=== PATIENT | male | born 1965 | race Caucasian/White ===

== ENCOUNTER 2025-07-21 14:14 | Inpatient (IN) | payer OTHER, SELFPAY ==
[2025-07-21] VITALS (21 sets, daily range): BP systolic 112–168; BP diastolic 85–125; BMI 31.6
--- NOTE | 2025-07-21 08:50 | ED.GENMED ---
History of Present Illness
<Marly Harris PA-C - Last Filed: 07/21/25 10:21>
General
Chief Complaint: Chest Pain
Source: patient
Exam Limitations: none
Time Seen by Provider: 07/21/25 08:48
Nursing documentation reviewed up to this point in time: agreed with
History of Present Illness
History of Present Illness:
Patient is a 59 y.o male presenting to the emergency department for evaluation following episode of chest pain which occurred last night. Patient states he was woken up at 3 AM with a pressure/tightness sensation in his mid chest. Pain was
constant and persisted for about 2.5 hours however seem to resolve around 5:30 AM. He also describes a pain radiating down his left arm. He denies any associated lightheadedness, dizziness, shortness of breath, nausea or diaphoresis.
Patient states that over the past few months he has felt more short of breath with exertional activities like climbing the stairs. He occasionally does have a tightness in his chest. Yesterday�patient states he did assist his daughter as she is
moving and climbed many flights of stairs.
Patient did have an episode of somewhat similar symptoms many years ago and was seen by cardiology, Maurice and Jevon and symptoms were suspected to be secondary to acid reflux.
He does have a significant family history of coronary artery disease including multiple MIs in his brother starting the age of 45 as well as his father had a triple bypass. Patient himself has no known history of coronary artery disease. His
primary care recently recommended a stress test.
Review of Systems
<Marly Harris PA-C - Last Filed: 07/21/25 10:21>
Review of Systems
Allergies reviewed?: Yes
All Other Systems: ROS reviewed and negative except as documented in HPI and ROS
Phy Exam
<Marly Harris PA-C - Last Filed: 07/21/25 10:21>
Physical Exam
Physical Exam:
Vitals: Hypertensive, otherwise vital signs stable. Afebrile
General: Patient is well appearing, no acute distress
Skin: Warm and dry, no rashes or lesions
Head: Normocephalic, atraumatic
Eyes: Sclera nonicteric. EOMs intact. No nystagmus.
Throat: Protecting airway
Neck: Normal ROM, no cervical spine tenderness, no meningismus
Cardiac: Regular rate and rhythm, no murmurs. 2+ palpable radial pulses bilaterally. No reproducible chest wall tenderness
Pulm: Normal respiratory effort, no wheezes, rales, rhonchi heard on exam
Abdomen: No abdominal tenderness.
Extremities: No evidence of cyanosis or edema of bilateral lower extremities. 2+ palpable DP pulses.
Neuro: AAOx3. Grossly intact.
Psychiatric: Normal affect.
Scores
<Marly Harris PA-C - Last Filed: 07/21/25 10:21>
Heart Score for Chest Pain Patients
STEMI patient?: No
History: Moderately Suspicious
ECG: Nonspecific Repolarization
Age: >45 - <65 years
Risk Factors: 1 or 2 Risk Factors
Troponin: >/= 3 x Normal Limit
Heart Score for Chest Pain Patients: 6
Heart Score Risk: 20.3% MACE over next 6 weeks
Course
<Marly Harris PA-C - Last Filed: 07/21/25 10:21>
Orders/Labs/Results
Orders:
Orders
07/21/25 08:39
EKG [Electrocardiogram (*1)] Urgent
Reason for Study: Chest Pain
07/21/25 08:40
EKG- Treatment ONCE
07/21/25 08:53
CXR2 [CR Chest - 2 Views ] Urgent
Comment:
Reason For Exam: chest pain
07/21/25 09:07
CMP [Comprehensive Metabolic Panel] Urgent
Complete Blood Count/No Diff Urgent
NT-proBNP Urgent
Troponin I Urgent
07/21/25 09:21
Add On- LAB Urgent
Tests Added?: Pro-BNP
07/21/25 10:02
CARDIOLOGY CONSULT Urgent
Consulting Provider: Fuad Gilliland
Was physician already notified: Yes
Aspirin Chewable [Low Strength Aspirin] 324 mg PO NOW STA
Heparin 4,000 units IV NOW STA
07/21/25 10:03
PTT Urgent
Comment: Obtain baseline before beginning heparin infusion if not already collected
Nursing to Place Non Medication Order As Directed
Physician Order: PTT 6 hours after initial start of Heparin infusion
07/21/25 10:15
Heparin 57154 Units/250 ml 25,000 units in 250 ml IV PER PROTOCOL
Weight to be used for heparin protocol in kilograms (kg):: 105.6
Protocol:: Cardiac Tx/Acute Coronary
PTT Goal Range to be used:: PTT 73 to 111 seconds
Order type:: Initial
INITIAL Infusion Dose (UNITS/KG/hr) & then follow protocol:: 12 units/kg/hr
Infusion Dose in UNITS/hr & then follow protocol (UNITS/hr):: 1,000
INFUSION RATE in mL/hr & then follow protocol (mL/hr):: 10
PTT less than or equal to 64 seconds:: Increase rate by 200 units/hr (+ 2 mL/hr)
PTT 64.1 to 72.9 seconds:: Increase rate by 100 units/hr (+ 1 mL/hr)
PTT 73 to 111 seconds:: Target Range. No change in rate.
PTT 111.1 to 130.9 seconds:: Decrease rate by 100 units/hr (- 1 mL/hr)
PTT 131 to 199.9 seconds:: HOLD for 1 hr. Then decrease rate by 200 units/hr (- 2 mL/hr)
PTT greater than or equal to 200 seconds:: HOLD for 2 hrs & Notify Provider. Then decrease by 200 units/hr (-
2 mL/hr)
Lab follow-up:: Each change, PTT q6h until 2 consecutive are therapeutic. Then PTT
daily.
Abnormal Lab Results
07/21/25
09:07
MCH 32.8 H pg
(27.0-31.0)
Glucose 106 H mg/dl
(70-99)
Troponin I 0.188 H* ng/ml
07/21/25 09:07
07/21/25 09:07
Vital Signs
Initial and Last Documented VS:
Initial Vital Signs
Temp Pulse Resp BP Pulse Ox
97.8 F 74 20 160/109 97
07/21/25 08:43 07/21/25 08:43 07/21/25 08:43 07/21/25 08:43 07/21/25 08:43
Last Documented Vital Signs
Temp Pulse Resp BP Pulse Ox
97.8 F 72 12 168/119 95
07/21/25 08:43 07/21/25 09:15 07/21/25 09:15 07/21/25 09:00 07/21/25 09:16
<Blayne Santiago MD - Last Filed: 07/21/25 10:08>
Orders/Labs/Results
Orders:
Orders
07/21/25 08:39
EKG [Electrocardiogram (*1)] Urgent
Reason for Study: Chest Pain
07/21/25 08:40
EKG- Treatment ONCE
07/21/25 08:53
CXR2 [CR Chest - 2 Views ] Urgent
Comment:
Reason For Exam: chest pain
07/21/25 09:07
CMP [Comprehensive Metabolic Panel] Urgent
Complete Blood Count/No Diff Urgent
NT-proBNP Urgent
Troponin I Urgent
07/21/25 09:21
Add On- LAB Urgent
Tests Added?: Pro-BNP
07/21/25 10:02
CARDIOLOGY CONSULT Urgent
Consulting Provider: Fuad Gilliland
Was physician already notified: Yes
Aspirin Chewable [Low Strength Aspirin] 324 mg PO NOW STA
Heparin 4,000 units IV NOW STA
07/21/25 10:03
PTT Urgent
Comment: Obtain baseline before beginning heparin infusion if not already collected
Nursing to Place Non Medication Order As Directed
Physician Order: PTT 6 hours after initial start of Heparin infusion
07/21/25 10:15
Heparin [id number] Units/250 ml 25,000 units in 250 ml IV PER PROTOCOL
Weight to be used for heparin protocol in kilograms (kg):: 105.6
Protocol:: Cardiac Tx/Acute Coronary
PTT Goal Range to be used:: PTT 73 to 111 seconds
Order type:: Initial
INITIAL Infusion Dose (UNITS/KG/hr) & then follow protocol:: 12 units/kg/hr
Infusion Dose in UNITS/hr & then follow protocol (UNITS/hr):: 1,000
INFUSION RATE in mL/hr & then follow protocol (mL/hr):: 10
PTT less than or equal to 64 seconds:: Increase rate by 200 units/hr (+ 2 mL/hr)
PTT 64.1 to 72.9 seconds:: Increase rate by 100 units/hr (+ 1 mL/hr)
PTT 73 to 111 seconds:: Target Range. No change in rate.
PTT 111.1 to 130.9 seconds:: Decrease rate by 100 units/hr (- 1 mL/hr)
PTT 131 to 199.9 seconds:: HOLD for 1 hr. Then decrease rate by 200 units/hr (- 2 mL/hr)
PTT greater than or equal to 200 seconds:: HOLD for 2 hrs & Notify Provider. Then decrease by 200 units/hr (-
2 mL/hr)
Lab follow-up:: Each change, PTT q6h until 2 consecutive are therapeutic. Then PTT
daily.
Abnormal Lab Results
07/21/25
09:07
MCH 32.8 H pg
(27.0-31.0)
Glucose 106 H mg/dl
(70-99)
Troponin I 0.188 H* ng/ml
07/21/25 09:07
07/21/25 09:07
Vital Signs
Initial and Last Documented VS:
Initial Vital Signs
Temp Pulse Resp BP Pulse Ox
97.8 F 74 20 160/109 97
07/21/25 08:43 07/21/25 08:43 07/21/25 08:43 07/21/25 08:43 07/21/25 08:43
Last Documented Vital Signs
Temp Pulse Resp BP Pulse Ox
97.8 F 72 12 168/119 95
07/21/25 08:43 07/21/25 09:15 07/21/25 09:15 07/21/25 09:00 07/21/25 09:16
<Marly Harris PA-C - Last Filed: 07/21/25 10:21>
MDM/Problems Addressed
Differential Diagnosis Includes:
Not limited to: Muscle strain/spasm, GERD, acute coronary syndrome, congestive heart failure, pericarditis, myocarditis, etc.
MDM/Problems Addressed:
59-year-old male presenting for evaluation following 2.5-hour episode of midsternal chest pressure which woke him from sleep around 3 AM. He also notes pain into his left arm. Chest pain has resolved prior to my evaluation. There was no
associated shortness of breath, diaphoresis, lightheadedness, nausea. No pleuritic or clear exertional component to the symptoms. He did assist his daughter in moving yesterday and climbed many flights of stairs. No personal history of coronary
artery disease although significant family history.
Hypertensive on arrival with otherwise stable vital signs. Physical exam as above. Differential broad and includes cardiac, pulmonary, and MSK etiologies. Initial EKG obtained in triage reveals normal sinus rhythm with some nonspecific ST
changes. ED plan: Labs, chest x-ray. With family history�will plan for serial troponins to rule out acute coronary syndrome. Will reassess after above.
Update 10 AM: Troponin elevated at 0.188. Otherwise labs unremarkable. Clinical picture consistent with unstable angina. Patient remains chest pain-free. Attending ED physician did discuss case with cardiology on-call. Heparin bolus/drip
started in the ED. Full-strength aspirin given. Patient admitted to hospitalist service in stable condition with cardiac consult. Plan for cardiac catheterization later today versus tomorrow.
Chronic conditions affecting care:
N/A
Acute Exacerbation and/or Progression of Chronic Illness:
N/A
<Marly Harris PA-C - Last Filed: 07/21/25 10:21>
*Pulse Oximetry
SaO2: 97
Oxygen Mode of Delivery: Room air
Patient hypoxic: no
*EKG
Interpreted by ED Provider?: Yes
EKG Intrepretation Date: 07/21/25
Interpretation: abnormal
Comparison EKG: no comparison EKG present
Heart Rate: 74
Rate: normal
Rhythm: sinus
[place]: normal axis
Interval: normal QT interval
QRS Pattern: normal QRS
Ischemia: non-specific ST changes
*All Round [place]cher Interpretation
Rate: normal
Interpretation: normal
Heart Rate: 70
Rhythm: sinus
*Critical Care Note
Total Time (30-74mins, 75-104mins- exclusive of procedures): 30
comment:
Critical care statement: A total of 30 minutes of critical care time was provided for this patient. This includes management of unstable vital signs, evaluation of the patient at bedside, reviewing the patient's pertinent medical records, discussion
with consultants, review of old EKGs and review of pertinent medical records. This time with separate from time utilized to perform the aforementioned documented procedures
<Marly Harris PA-C - Last Filed: 07/21/25 10:21>
Patient Management
Discussion with other providers: Hospitalist and Operations Director (Case discussed with cardiology)
ED Attending Note
<Marly Harris PA-C - Last Filed: 07/21/25 10:21>
-
Portions of this chart may have been created with voice recognition software.� Occasional wrong word or��sound alike� substitutions may have occurred due to the inherent limitations of voice recognition software.
<Blayne Santiago MD - Last Filed: 07/21/25 10:08>
ED Attending Note
Patient seen and examined by attending physician: Yes
ED Attending Note:
I have seen and evaluated the patient with a [id number] encounter. I have spoken to the advance practicer provider and involved in the medical history, the physical exam, medical decision making.
Evaluation and management service: agree unless noted differently below.
Results interpretation: agree unless noted differently below.
Focused HPI: 59-year-old male with a past medical history of GERD presents to the ER for evaluation of chest pain. Patient reports onset of symptoms around 3 AM that woke him from sleep. He says symptoms lasted for about 2 hours and have since
resolved and he is now chest pain-free. He describes a pressure/squeezing sensation substernal. He denies any associated nausea, vomiting, diaphoresis. Denies shortness of breath. He does note that yesterday he was moving furniture for his
daughter and had similar chest pains with exertion that were transient and resolved with rest. He notes that over the past month or 2 he has noticed limited stamina with yard work which is unusual for him. He denies any personal history of heart
disease, he did see Dr. Richards once in the past for cardiac workup that was attributed to indigestion�he estimates this was in roughly 2019 and has not seen anyone since. He does have a strong family history of heart disease including DE in his
brother at 47 and CABG in his father.
Physical exam: Awake and alert no distress. Hypertensive otherwise normal vitals. No cardiac rubs gallops or murmurs. Lungs sound clear. No JVD. No edema in the legs.
Medical Decision Makin-year-old male presents with progressive chest pain culminating in resting episode of chest pain for 2 hours last night that has since resolved. Hypertensive but otherwise normal vitals. Physical exam as above. EKG
shows some nonspecific ST changes. His notes troponin is elevated 0.188. Overall clinical picture concerning for unstable angina. Given full dose aspirin and heparin infusion initiated. Case discussed with cardiology for consultation�it sounds
like likely plan for a cardiac catheterization either today or tomorrow. Case discussed with hospitalist for admission.
Discharge Plan
Departure
Patient Disposition: Admit
Date of Disposition: 07/21/25
Time of Disposition: 10:05
Admit to doctor: Grisel
Presentation/result/management discussed w/ accepting MD/DO: Hospitalist
Discharge Problem:
Unstable angina
Prescriptions:
No Action
famotidine [Pepcid] 20 mg Tablet
20 mg PO DAILYPRN PRN (Reason: GERD)
Interventions
Interventions:
*Risk Screen - Suicide Last Done: 07/21/25 08:43
*General Assessment Last Done: 07/21/25 09:00
*Neglect/Abuse Screening Last Done: 07/21/25 08:43
*ED- Fall Risk Assessment Last Done: 07/21/25 09:00
*ED COVID-19 Vaccine History Last Done: 07/21/25 09:00
ED- Cardiac Assessment Last Done: 07/21/25 09:16
Discharge Date and Time
Print Language: CHADIAN
--- NOTE | 2025-07-21 09:25 | EDRN ---
Received patient on stretcher. Patient stated that he developed chest pain this morning that woke him up from sleep. Lasted a couple of hours. Denied c/o SOB,nausea and diaphoresis. Patient stated that he was helping his daughter move yesterday.
Denies chest pain now.
[2025-07-21 09:27] LABS: Hematocrit 43.4 % (39.0-52.0); Hemoglobin 15.6 g/dL (13.0-18.0); Mean Corp Hgb Conc. 35.9 g/dL (33.0-37.0); Mean Corpuscular Volume 91.4 fL (80.0-94.0); Platelet Count 172 10^3/uL (130-400); Red Cell Dist. Width 11.9 % (11.5-14.5)
[2025-07-21 09:40] LABS: ALT (SGPT) 31 U/L (0-50); AST (SGOT) 30 U/L (17-59); Albumin 4.4 g/dl (3.5-5.0); Alkaline Phosphatase 93 U/L (38-126); Blood Urea Nitrogen 13 mg/dl (9-20); Calcium 8.9 mg/dl (8.4-10.2); Carbon Dioxide 28 mmol/L (22-30); Chloride 104 mmol/L (98-107); Estimated Creatinine Clearance > 125 ml/min; Glucose 106 mg/dl (70-99); Potassium 4.2 mmol/L (3.5-5.1); Sodium 138 mmol/L (135-145); Total Protein 7.4 g/dl (6.3-8.2); eGFR > 60.00
[2025-07-21 09:52] LABS: Troponin I 0.188 ng/ml
[2025-07-21] MEDS: HEPARIN 4000 UNITS IV (10:25)
[2025-07-21] MEDS: LOW STRENGTH ASPIRIN 324 MG PO (10:26)
[2025-07-21] MEDS: HEPARIN 25000 UNITS/250 ML IV (10:26)
[2025-07-21 10:42] LABS: APTT 25.2 Sec (23.4-35.0)
--- NOTE | 2025-07-21 11:13 | CON.CAR ---
Addendum entered and electronically signed by Fuad Gilliland MD 07/21/25 12:23:
59-year-old man with little past medical history with 2 hours of chest discomfort at 3 AM radiating down the left arm, presenting with a troponin of 0.[address] and T wave changes. In retrospect, some exertional dyspnea and tightness
in his chest.
PMH: Largely negative, possible GERD
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
Meds: As needed famotidine
Rest of history as below, reviewed in detail and agree unless otherwise specified
149/103, pulse 73, respiratory rate 13, head neck exam unremarkable lungs are clear, regular rate and rhythm without murmurs or gallops, abdomen benign extremities without clubbing cyanosis or edema distal pulses intact
Chest x-ray: No active disease
ECG: Sinus rhythm, minor nonspecific ST and T wave changes
Normal CBC, glucose 106, creatinine 0.8, troponin 0.188, proBNP 48.7
Impression:
Acute coronary syndrome
Hypertension suspected
Hypercholesterolemia suspected
Other information as below per Tanika Doan. Reviewed in detail and agree, unless otherwise specified
Plan:
Aspirin, IV nitroglycerin, heparin, low-dose beta-blockade, likely statin
Proceed with cardiac catheterization
Reviewed with patient
Original Note:
Consultation
Consultation Request
Date/Time Consultation Requested: 07/21/2025
Date/Time Consultation Performed: 07/21/2025
Requesting Provider: Dr. Santiago in the ER
Performing Provider: Dr. LUIS Gilliland
Reason for Consultation: USA
Medical History
-
History of Present Illness:
Patient came to the ER today with chest pain and is being admitted with elevated troponin and concern for unstable angina and cardiology was consulted urgently in the ER. Patient says that over the weekend he was helping his daughter move from her
home and while going up and down the stairs with boxes he had a substernal chest pain. Patient did not think much of his symptoms and then he awoke at 3 AM today with heavy substernal pressure radiating to the left arm that felt similar to, but
much more intense than what he had felt yesterday. Symptoms lasted for about 2 hours and then the patient managed to doze off back to sleep and was awakened at 6 AM when the alarm went off and he had no more pain. Patient told his about his
symptoms and came to the ER. Since arrival in the ER patient says that the heavy chest pressure has improved, but there is an ongoing aching substernal. Patient recalls being evaluated by [facility] in 2019 with symptoms that were attributed to GERD. He
says he had a stress test but it has been many years since then. Patient denies history of HTN, but initial BP today was 160/109 and BP as high as 167/125. Patient does not take any medications on a daily basis as an outpatient.
PMH:
FH premature CAD
Past Medical History
Past Medical History: Other (In HPI)
Past Surgical History: None
Social History
Tobacco: Non-Smoker
Alcohol: None
Drug: None
Personal:
Living: With Family
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
Family History
Family History: Early CAD (brother with OH and PCI starting at age 47, father with OH and CABG in his 50s)
Allergies / Home Medications
Allergy/AdvReac Type Severity Reaction Status Date / Time
No Known Allergies Allergy Verified 07/21/25 08:59
�Medication �Instructions �Recorded �Confirmed �Type
famotidine 20 mg tablet (Pepcid) 20 mg PO DAILYPRN PRN GERD 07/21/25 07/21/25 History
Review of Systems
-
History Source: Patient
All other systems: Negative unless noted
Physical Exam
Vital Signs
Temp Pulse Resp BP Pulse Ox
97.8 F 79 19 163/97 96
07/21/25 08:43 07/21/25 11:00 07/21/25 11:00 07/21/25 11:00 07/21/25 11:00
GEN: NAD. AAOx3
HEENT: EOMI, MMM
LUNGS: RA. CTA B/L, no wheeze
CV: SR on tele. Reg, S1/S2, no murmur
ABD: soft, BS+, NT, ND
EXT: 2+ radial and PT pulses B/L. No edema
NEURO: Gross non-focal
SKIN: No rash
Lab Results
07/21/25 09:07
07/21/25 09:07
Troponin I 0.188 ng/ml H* 07/21/25 09:07
Vzm-R-Rxczboiekpd Pept 48.7 pg/ml 07/21/25 09:07
Impression / Plan
-
PCP: Dr. Mynor Loev
Card: Saw [facility] once in 2018
Impression:
Presented to the ER with symptoms of USA 07/21/2025
USA, possible NSTEMI
Elevated troponin
FH premature CAD
Plan:
-Patient came to the ER today with chest pain and is being admitted with elevated troponin and concern for unstable angina and cardiology was consulted urgently in the ER. Patient says that over the weekend he was helping his daughter move from her
home and while going up and down the stairs with boxes he had a substernal chest pain. Patient did not think much of his symptoms and then he awoke at 3 AM today with heavy substernal pressure radiating to the left arm that felt similar to, but
much more intense than what he had felt yesterday. Symptoms lasted for about 2 hours and then the patient managed to doze off back to sleep and was awakened at 6 AM when the alarm went off and he had no more pain. Patient told his about his
symptoms and came to the ER. Since arrival in the ER patient says that the heavy chest pressure has improved, but there is an ongoing aching substernal. Patient recalls being evaluated by [facility] in 2019 with symptoms that were attributed to GERD. He
says he had a stress test but it has been many years since then. Patient denies history of HTN, but initial BP today was 160/109 and BP as high as 167/125. Patient does not take any medications on a daily basis as an outpatient.
-ECG reviewed by me without acute ischemic changes
-Initial troponin 0.118 and trending
-Concern for unstable angina with symptoms on exertion over the weekend and now awakened early this morning with chest pain that lasted for hours and is associated with an elevated troponin here. Reviewed with patient possibility of cardiac
catheterization and results including 1-2 vessels disease that can undergo PCI vs MV CAD vs possible nonobstructive CAD and that his symptoms are all due to HTN emergency.
-Patient is familiar with cardiac catheterization procedure because of his family history with his dad and his brother. We discussed the risks versus benefits of cardiac cath and he would like to proceed
-Patient given aspirin 324 mg chewable in the ER prior to my arrival
-Heparin gtt started prior to my arrival
-Due to ongoing chest aching I started nitro gtt at 10 mcg and then titrate for pain
-On admission check CVE and pending cardiac cath will need to start statin. Patient reports myalgias with simvastatin in the past.
-Check HgbA1c
-Patient will likely need additional anti-HTN treatment
-Check echo
[2025-07-21] MEDS: NITROGLYCERIN PREMIX 250 IV (11:21)
--- NOTE | 2025-07-21 11:48 | EDRN ---
Patient started on NTG drip at 10mcg/min for c/o 2-3 chest tightness. Patient stated that he has been having chest tightness since he's been here but did not equalivant it as pain. Explained to patient about NTG drip and if his chest tightness gets
any worse he needs to notify staff immediately. Verbalized understanding. 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 Verbalized understanding.
--- NOTE | 2025-07-21 12:10 | CM ---
Met with patient at bedside in the ED
Pharmacy verified: [facility] @ [address]
Live with ; multilevel home; 5 steps to enter; 17-18 steps between floors; railings present; full bath 1st floor
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
NO DME
NO SNF or Home Health utilization history
Transport: he drove self to hospital; if driving home is restricted, will provide transport
Discharge plan to be determined pending hospital course; Case Management will monitor for services and support if/when needs identified
--- NOTE | 2025-07-21 13:20 | HPS.HSE ---
Family Physician
-
Family Physician: Mynor Love
Chief Complaint
-
Chest pain, unstable angina
History of Present Illness
59-year-old male with past medical history of GERD now presents for substernal chest pain. Patient states that over the weekend he noted substernal chest pain while ambulating up and down the stairs of boxes. At that point, symptoms subsided
although symptoms reoccurred along with heavy substernal chest pressure rating to the left arm overnight at 3 AM prompting patient to wake up. Patient's symptoms were similar although more intense than what he felt over the weekend. Symptoms
lasted 2 hours, and then patient went back to sleep. Woke up at 6 AM with no pain although after discussion with , decision was to come to the hospital. Does have ongoing aching substernal chest pain in the emergency room. No recent stress
test, cardiac evaluation. On no antiplatelet regimen. Blood pressure mildly elevated, although 136/101, on nitroglycerin drip, afebrile, pulse 97, respirate 16. Troponin 0.188, proBNP 48.7. EKG with nonspecific ST abnormality. Chest x-ray with
no acute cardiopulmonary abnormality noted. Patient was given aspirin 325 mg, heparin drip initiated, nitroglycerin drip initiated. Cardiology consulted for left heart cath tentatively today.
Medical History
Past Medical History
Past Medical History: Reports GERD
Past Surgical History: Reports None
Social History
Tobacco: Non-smoker
Alcohol: None
Drug: None
Personal:
Living: With Family
Employment: Employed
Family History
Family History: Early CAD (brother with IL and PCI starting at age 47, father with IL and CABG in his 50s)
Allergies / Home Medications
Allergies reflects when Allergies were last updated in [facility].
Home Medications with original date entered in [facility]
Allergy/Medication List:
Allergies
Allergy/AdvReac Type Severity Reaction Status Date / Time
No Known Allergies Allergy Verified 07/21/25 08:59
Home Medications
famotidine 20 mg tablet (Pepcid) 20 mg PO DAILYPRN PRN GERD 07/21/25
Review of Systems
-
History Source: Patient
A 12 point ROS was completed and negative except as noted: Yes
Physical Exam
Vital Signs
Vital Signs
Temp Pulse Resp BP Pulse Ox
98.9 F 97 16 136/101 94
07/21/25 12:47 07/21/25 12:47 07/21/25 12:47 07/21/25 12:47 07/21/25 12:47
Physical Exam
General: Well Developed and Well Nourished
HEENT: NormoCephalic
Respiratory: Clear
Cardiac: S1/S2, Regular Rhythm and Tachycardia
GI: Non Tender
Musculoskeletal: No Clubbing
Skin: Warm
Neuro: Awake, Alert, Oriented and AO x 3
Hematologic/Lymphatic: No Lymphadenopathy
Psych: Calm
Laboratory Results
-
07/21/25 09:07
07/21/25 09:07
Laboratory Results
APTT Cancelled 07/21/25 16:30
Total Bilirubin 0.8 mg/dl (0.2-1.3) 07/21/25 09:07
AST 30 U/L (17-59) 07/21/25 09:07
ALT 31 U/L (0-50) 07/21/25 09:07
Alkaline Phosphatase 93 U/L (38-126) 07/21/25 09:07
Troponin I 0.188 ng/ml H* 07/21/25 09:07
Data Reviewed
-
Diagnostic Radiology: Report Reviewed by me
Lab Data: Labs Reviewed by me
Impression/Plan
-
IMPRESSION:
59-year-old coming in for unstable angina, suspected ACS.
PLAN:
#ACS
� Continue aspirin 81 mg daily, received 325 mg today
� Continue nitroglycerin prior to left heart cath
� Continue heparin drip
� Anticipate low-dose beta-iwona initiation tomorrow, 25 mg Toprol ordered
� Follow-up lipid panel, anticipate statin
� Left heart cath today
� Cardiology on board
� Follow-up A1c
� Echocardiogram
� Anticipate transferring over to IVU
#Hypertension
� Initiated on beta-blockade
� Depending on left heart cath, anticipate initiating LISSY inhibitor
#GERD
� Famotidine
Prophylaxis
� Heparin drip
[2025-07-21 13:22] LABS: ACT-LR - POC 252 Seconds (116-155)
[2025-07-21 13:45] LABS: ACT-LR - POC 308 Seconds (116-155)
--- NOTE | 2025-07-21 14:06 | ITS.CL.CATH ---
Tip Printer - Catheterization
Cardiac Catheterization
Procedure Report:
LEFT HEART CATH AND CORONARY INTERVENTION
Date of Procedure: July 21, 2025
Referring: Dr. Fuad Gilliland
PROCEDURES:
1. Left heart catheterization with coronary and single-plane left ventriculography
2. Successful stenting of the mid circumflex to a large OM 2 with a 3.5 x 26 mm Tobin stent that was implanted at nominal pressures and postdilated with a 3.5 mm noncompliant balloon
INDICATION: This is a 59-year-old gentleman with no prior cardiac history who reported the onset of waxing and waning substernal chest pressure during periods of physical exertion over the past several weeks. On the morning of admission he awoke at
approximately 3 AM with substernal chest tightness. 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 He reported ongoing chest discomfort and sought medical attention at [facility]
emergency room. He was found to be very hypertensive complaining of ongoing low-grade substernal chest tightness. His troponin was noted to be mildly elevated. He is now referred for coronary angiography.
ACCESS: Right radial artery, 6 Grenadian sheath
HEMODYNAMICS (mmHg):
AO (s/d, m) : 129/95
LV (s/d) : 134/7
LVEDP : 13
CORONARY FINDINGS
Dominance: Right
LEFT MAIN: Normal
LEFT ANTERIOR DESCENDING: The LAD arises normally from the left main and runs in the anterior interventricular groove. The first diagonal branch arises proximally from the LAD and has a 50% proximal stenosis. The diagonal branch bifurcates
distally. The mid LAD beyond the diagonal branch has tandem 50% and 65% stenoses. The mid to distal LAD has only minor irregularities.
RAMUS: Small to medium caliber vessel that is widely patent
CIRCUMFLEX: The circumflex is a large-caliber nondominant vessel. There is an 80% stenosis in the mid circumflex before the origin of OM1. The circumflex just beyond OM1 becomes 100% occluded with the distal vessel filling via faint right to left
and left to left collaterals.
RIGHT CORONARY: The right coronary artery is a dominant vessel with minor irregularities over its course but no focal obstructive stenosis. The distal RCA supplies collaterals to an occluded circumflex/OM
VENTRICULOGRAPHY: Left ventriculography is performed in an DIMAS projection. The digital single-plane left ventricular ejection fraction is visually estimated at 60% with a small area of anterolateral hypokinesis noted
ANGIOPLASTY PROCEDURE DETAIL: Upon review of the diagnostic angiogram the decision was made to proceed with percutaneous revascularization of the occluded circumflex/OM 2. A 180 mg loading dose of ticagrelor was given. Intravenous heparin was
administered and the ACT was monitored throughout the procedure and maintained within therapeutic limits. The origin of the left main was cannulated with a 6 Grenadian EBU 3.75 guiding catheter and a BMW guidewire across the occluded segment in the
mid circumflex with a moderate degree of difficulty and was then advanced distally into a large terminal obtuse marginal branch. Balloon predilation was performed with a 2.0 x 12 mm Euphora balloon. Antegrade flow was reestablished into a large
terminal obtuse marginal branch. A 3.5 x 26 mm Hart stent was then advanced over the guidewire position with angiographic and fluoroscopic guidance. The stent was implanted at nominal pressures and postdilated with a 3.5 mm noncompliant balloon to
16 mirta distally and 16 mirta proximally with an excellent angiographic result
SEDATION: 68 minutes of procedural sedation was utilized. An independent general medical practitioner was present to assist with and help manage the patient's level of consciousness and physiologic status
RADIATION SUMMARY: Fluoro Time (min): 13.5, Dose (mGy): 1116, DAP (Gy.cm2) : 51.5
CONCLUSIONS
1. Successful stenting of 100% occluded mid circumflex/OM2 with placement of a 3.5 x 26 mm Hart stent that was postdilated to high pressures with a 3.5 mm noncompliant balloon
2. Residual coronary disease involving the mid LAD with tandem 50 and 65% stenoses.
3. Preserved LV systolic function
RECOMMENDATIONS
1. Uninterrupted aspirin and Brilinta for 1 year
2. High intensity lipid-lowering
3. Guideline directed medical therapy for hypertension
4. Transient serial troponin levels and obtain fasting lipid profile. Check hemoglobin A1c
5. Check echocardiogram
6. Patient can follow-up in the office and we will determine next steps to evaluate tandem LAD stenosis
Copy to: Dr. Mynor Love
[2025-07-21 14:20] LABS: ACT-LR - POC 319 Seconds (116-155)
[2025-07-21 14:20] LABS: ACT-LR - POC 306 Seconds (116-155)
--- NOTE | 2025-07-21 14:32 | PTCARENOTE ---
pt is sr on the monitor, hr in the 60s, vss. pt offers no complaints at this time. right radial band is CDI. nitro gtt running per protocol, see MAR. Pt educated on plan of care and pt verbalized understanding. call adamson within reach.
[2025-07-21] MEDS: TYLENOL 650 MG PO (14:59)
--- NOTE | 2025-07-21 16:12 | CM ---
Reviewed chart. Met with Mr. Mason to review discharge plans. He states prior to admission he resides wit his spousein a two story home with six steps to enter. He states he has a full flight of steps to get to bedroom. He states he has a full
bathroom on each level. He states prior to admission he was independent with ambulation and adls. He states he does not have any DME in the home. He states he has a prescription plan. Telephone call to [facility],([phone]) to check on co-pay
for Brilinta. Brilinta co-pay is $326.36 a month and the generic Ticagrelor is $5.00 a month. Telephone call to [facility] [place] to see if Ticagrelor is in stock. [facility] [place] [facility]. Telephone call to [facility] on [address] and
they have it in stock. N.P to send script there. Medical work-up in progress. The discharge plan is to return home with his spouse when medically stable.
[2025-07-21] MEDS: ZESTRIL 5 MG PO (17:20)
[2025-07-21] MEDS: LIPITOR 80 MG PO (17:20)
--- NOTE | 2025-07-21 17:22 | CARDSERVLU ---
Echocardiogram with Lum[facility] completed after protocol screening completed. Allergies verified.
Patent IV site: LAC
IV site flushed with 0.9% NaCl pre and post administration.
Diluted bolus method utilized to enhance visualization of ventricular hernandez.
Total volume given: _2___ mL
Patient tolerated all procedures well without complications.
[2025-07-21 17:28] LABS: Troponin I 7.620 ng/ml
--- NOTE | 2025-07-21 19:14 | PTCARENOTE ---
pt ambulating in room and tolerating well. pt is sr on the monitor, hr in the 70s, vss. pt offers no complaints at this time. nitro gtt off per order. right radial band off with no issue. dressing CDI. pt sitting with . both educated on plan of
care and pt verbalized understanding. call adamson within reach.
[2025-07-21] MEDS: BRILINTA 90 MG PO (20:00)
[2025-07-21] MEDS: COREG 3.125 MG PO (20:00)
[2025-07-21 21:53] LABS: Troponin I 5.820 ng/ml
[2025-07-22] VITALS (8 sets, daily range): BP systolic 112–127; BP diastolic 70–93; BMI 31.0
--- NOTE | 2025-07-22 01:35 | PTCARENOTE ---
Pt NSR on monitor. VSS Denies any pain or discomfort. Rt wrist post cath site dsg CDI. Pt independent in the room, call juan diego w/in reach
[2025-07-22 04:28] LABS: Hematocrit 39.8 % (39.0-52.0); Hemoglobin 14.3 g/dL (13.0-18.0); Mean Corp Hgb Conc. 35.9 g/dL (33.0-37.0); Mean Corpuscular Volume 93.2 fL (80.0-94.0); Platelet Count 159 10^3/uL (130-400); Red Cell Dist. Width 12.0 % (11.5-14.5)
[2025-07-22 05:04] LABS: ALT (SGPT) 31 U/L (0-50); AST (SGOT) 47 U/L (17-59); Albumin 3.8 g/dl (3.5-5.0); Alkaline Phosphatase 75 U/L (38-126); Blood Urea Nitrogen 14 mg/dl (9-20); Calcium 8.5 mg/dl (8.4-10.2); Carbon Dioxide 27 mmol/L (22-30); Chloride 107 mmol/L (98-107); Estimated Creatinine Clearance > 125 ml/min; Glucose 100 mg/dl (70-99); HDL Cholesterol 28 mg/dl; Magnesium 1.9 mg/dl (1.6-2.3); Potassium 4.1 mmol/L (3.5-5.1); Sodium 136 mmol/L (135-145); Total Protein 6.4 g/dl (6.3-8.2); eGFR > 60.00
[2025-07-22 05:19] LABS: Troponin I 3.780 ng/ml
[2025-07-22 05:27] LABS: LDL Cholesterol, Direct 76 mg/dl
--- NOTE | 2025-07-22 08:00 | PTCARENOTE ---
Assumed care of pt from prev nsg shift; Pt AAOx3 w/no c/o CP or SOB.Pt w/VSS w/HR in the 60's & BP 127/90. Pt is SR on telemetry monitoring. Pt w/R radial site w/dressing C/D/I w/no signs or symptoms of bleeding or hematoma. Pt given CAD/ACS book &
ACS med sheet. Questions answered appropriately. Pt w/no addtl needs at this time. Plan of care ongoing.
[2025-07-22 08:41] LABS: Glycohemoglobin (HgbA1c) 5.4 % (4.0-5.6)
[2025-07-22] MEDS: LOW STRENGTH ASPIRIN 81 MG PO (09:33)
[2025-07-22] MEDS: PROTONIX 40 MG PO (09:33)
[2025-07-22] MEDS: ZESTRIL 5 MG PO (09:33)
[2025-07-22] MEDS: BRILINTA 90 MG PO ×2 (09:33→19:39)
[2025-07-22] MEDS: COREG 3.125 MG PO ×2 (09:33→19:39)
--- NOTE | 2025-07-22 10:08 | W.PN.CARDCBS ---
Addendum entered and electronically signed by Fuad Gilliland MD 07/22/25 11:27:
59-year-old man with little past medical history with 2 hours of chest discomfort at 3 AM radiating down the left arm, presenting with a troponin of 0.[address] and T wave changes. In retrospect, some exertional dyspnea and tightness
in his chest.
PMH: Largely negative, possible GERD
Current meds: IV nitro, IV heparin, aspirin 81 mg a day, atorvastatin 80 mg nightly, Brilinta 90 mg twice daily, carvedilol 3.125 twice daily, lisinopril 5 mg daily and pantoprazole 40 mg a day
127/90, 112/81, respiratory rate 14, weight is 103.6 kg, no distress, head neck exam unremarkable, lungs are clear, cardiac exam notable for regular rate and rhythm without murmurs or gallops, abdomen benign extremities without clubbing cyanosis or
edema distal pulses intact
chest x-ray yesterday NAD
ECG sinus rhythm, incomplete right bundle branch block, no acute changes
Hemoglobin 14.3, CMP is normal, peak troponin 7.6, LDL is 76, triglycerides were 505
Cath 07/21/2025: D1 50% proximal, tandem with 50 and 65% mid LAD stenoses, patent ramus, large nondominant circumflex, 80% in the mid circumflex prior to OM1, circumflex is occluded 100% distally, RCA with luminal regularities, distal RCA supplies
occluded circumflex/OM, mild anterolateral hypo-, 3.5 x 26 Jackson stents deployed to occluded mid circumflex
Impression:
NSTEMI with moderate LAD and diagonal atherosclerosis
Hypercholesterolemia
GERD
Plan:
Overall, he looks well. His echocardiogram is reassuring. His EKG is overall unremarkable. His peak troponin was only roughly 7.
Plan on observing overnight and discharging in the a.m.
No changes to medical regimen at present.
Cardiac rehab to be arranged.
We will arrange for outpatient stress testing and follow-up to our office to determine best strategy for moderate tandem LAD stenoses.
Original Note:
Today's Communication / Plan
-
Continue aspirin, Brilinta, high intensity statin
Continue Coreg, lisinopril for hypertension on arrival
Cardiac rehab
Will arrange outpatient cardiac follow-up
Plan for DC in a.m.
Impression / Plan
-
PCP: Dr. Mynor Love
Card: Saw [facility] once in 2018
Impression:
[place]
NSTEMI s/p circ/OM2 PCI 07/21/25, with residual LAD disease
Hypertensive urgency
Elevated triglycerides
FH premature CAD
Echo 07/21/2025: EF 55 to 60%, trace MR, mild aortic sclerosis, normal right heart
Plan:
- Patient presented with symptoms of unstable angina. Ruled in for NSTEMI with peak troponin of 7.6. Status post cardiac catheterization with 100% occlusion of circumflex/OM 2 status post PCI.
-Also noted to have residual LAD disease. consider for OP stress testing to further assess
-no CP overnight
-continue asa, brilinta
-in SR on review of tele
-echo with results as above, reviewed with patient 07/22
-he was started on coreg and lisinopril this admission for HTN urgency on arrival
-LDL 76. triglycerides 505. started on high intensity statin this admission
-cardiac rehab
-plan for DC in AM
-d/w nursing. Discussed with hospitalist
PREADMIT DATA:
-Patient came to the ER today with chest pain and is being admitted with elevated troponin and concern for unstable angina and cardiology was consulted urgently in the ER. Patient says that over the weekend he was helping his daughter move from her
home and while going up and down the stairs with boxes he had a substernal chest pain. Patient did not think much of his symptoms and then he awoke at 3 AM today with heavy substernal pressure radiating to the left arm that felt similar to, but
much more intense than what he had felt yesterday. Symptoms lasted for about 2 hours and then the patient managed to doze off back to sleep and was awakened at 6 AM when the alarm went off and he had no more pain. Patient told his about his
symptoms and came to the ER. Since arrival in the ER patient says that the heavy chest pressure has improved, but there is an ongoing aching substernal. Patient recalls being evaluated by [facility] in 2019 with symptoms that were attributed to GERD. He
says he had a stress test but it has been many years since then. Patient denies history of HTN, but initial BP today was 160/109 and BP as high as 167/125. Patient does not take any medications on a daily basis as an outpatient.
Progress Note - Assistant Corporation Counsel
Subjective
Date of Service: July 22, 2025
Patient without complaints of chest pain or shortness of breath overnight
Objective
Labs:
07/22/25 03:50
07/22/25 03:50
Labs
Hgb 14.3 g/dL (13.0-18.0) 07/22/25 03:50
Hct 39.8 % (39.0-52.0) 07/22/25 03:50
Plt Count 159 10^3/uL (130-400) 07/22/25 03:50
APTT Cancelled 07/21/25 16:30
Sodium 136 mmol/L (135-145) 07/22/25 03:50
Potassium 4.1 mmol/L (3.5-5.1) 07/22/25 03:50
BUN 14 mg/dl (9-20) 07/22/25 03:50
Creatinine 0.8 mg/dL (0.7-1.3) 07/22/25 03:50
Glucose 100 mg/dl (70-99) H 07/22/25 03:50
Troponins
07/21/25 07/21/25 07/21/25
09:07 16:43 21:04
Troponin I 0.188 H* 7.620 H* D 5.820 H*
07/22/25
03:50
Troponin I 3.780 H* D
Vital Signs and I&O:
Vital Signs
Temp Pulse Resp BP Pulse Ox
97.4 F 63 14 127/90 96
07/22/25 07:13 07/22/25 08:45 07/22/25 07:13 07/22/25 07:15 07/22/25 07:15
Vital Signs
Temp Pulse Resp BP Pulse Ox
97.4 F 63 14 127/90 96
07/22/25 07:13 07/22/25 08:45 07/22/25 07:13 07/22/25 07:15 07/22/25 07:15
Intake & Output
07/20/25 07/21/25 07/22/25 07/23/25
07:59 07:59 07:59 07:59
Intake Total 780 / 780
Balance 780 / 780
Physical Exam
Physical Exam
GEN: No distress, awake, alert, oriented x3
HEENT: supple, anicteric, mmm, EOMI
LUNGS: CTA bilaterally, no wheezes/rales
CV: Reg, S1/S2, no murmur
ABD: soft, BS+, NT/ND
EXT: No cyanosis, clubbing, edema
NEURO: Gross non-focal
SKIN: Warm, pink, dry. No rash. Right wrist site clean dry and intact, nontender to palpation. No bruit appreciated
--- NOTE | 2025-07-22 14:49 | W.PN.HOSP.TC ---
Today's Communication/Plan
-
DAPT
BB, ACEI
Statin
HSQ
Anticipate DC tomorrow
Assessment / Plan
Assessment / Plan
Physical Exam
General: Well Developed and Well Nourished
HEENT: NormoCephalic
Respiratory: Clear
Cardiac: S1/S2, Regular Rhythm and Tachycardia
GI: Non Tender
Musculoskeletal: No Clubbing
Skin: Warm
Neuro: Awake, Alert, Oriented and AO x 3
Hematologic/Lymphatic: No Lymphadenopathy
Psych: Calm
59-year-old coming in for unstable angina, suspected ACS.
PLAN:
#ACS
#NSTEMI
-Troponin peaked at 7.62
-Successful stenting of 100% occluded mid circumflex/OM2
-Residual coronary disease involving the mid LAD with tandem 50 and 65% stenoses.
� Continue DAPT
� Continue nitroglycerin prior to left heart cath - can be dced now
- Cont Coreg
- Madi ACEI
-Statin
� Echocardiogram: no wall motion abnormalities; ejection fraction 55-60%.
-outpatient stress testing and follow-up to our office to determine best strategy for moderate tandem LAD stenoses.
#Hypertension
� Initiated on beta-blockade, ACEI
#GERD
� Famotidine
Prophylaxis
� hsq
Anticipated Discharge: Within 24 hours
Subjective/Interval History
-
Date of Service: July 22, 2025
Successful PCI of 100% occluded mid circumflex/OM2
Objective Data
-
Labs:
Laboratory Results
07/22/25
03:50
WBC 6.9
Hgb 14.3
Hct 39.8
Plt Count 159
Sodium 136
Potassium 4.1
Chloride 107
Carbon Dioxide 27
BUN 14
Creatinine 0.8
Glucose 100 H
Calcium 8.5
Total Bilirubin 0.9
AST 47
ALT 31
Alkaline Phosphatase 75
Vital Signs:
Vital Signs
Temp Pulse Resp BP Pulse Ox
98.2 F 62 16 127/93 98
07/22/25 12:16 07/22/25 13:15 07/22/25 12:16 07/22/25 12:18 07/22/25 12:18
I&O
07/21/25 07/22/25 07/23/25
06:59 06:59 06:59
Intake Total 780 / 780
Balance 780 / 780
Review of Systems
-
History Source: Patient
All other systems: Not reviewed unless documented
Data Reviewed
-
Diagnostic Radiology: Report Reviewed by me
Labs: Labs Reviewed by me
[2025-07-22] MEDS: HEPARIN 5000 UNITS SC ×2 (18:04→23:00)
[2025-07-22] MEDS: LIPITOR 80 MG PO (18:05)
--- NOTE | 2025-07-22 20:25 | PTCARENOTE ---
Patient received at change of shift out of bed to the chair. Right radial cath site with gauze and tegaderm C/D/I. Radial pulse palpable. The patient denies chest pain or pressure, feels well overall. Sinus rhythm on telemetry. Oxygen saturation
97-98% on room air. Plan of care discussed with patient and spouse. Call adamson within reach. Care ongoing.
[2025-07-23 02:11] VITALS: BP 131/84
[2025-07-23 02:13] VITALS: BMI 31.0
[2025-07-23 02:38] LABS: Hematocrit 40.8 % (39.0-52.0); Hemoglobin 14.7 g/dL (13.0-18.0); Mean Corp Hgb Conc. 36.0 g/dL (33.0-37.0); Mean Corpuscular Volume 91.9 fL (80.0-94.0); Platelet Count 158 10^3/uL (130-400); Red Cell Dist. Width 12.1 % (11.5-14.5)
[2025-07-23 03:00] LABS: ALT (SGPT) 31 U/L (0-50); AST (SGOT) 37 U/L (17-59); Albumin 3.9 g/dl (3.5-5.0); Alkaline Phosphatase 78 U/L (38-126); Blood Urea Nitrogen 15 mg/dl (9-20); Calcium 9.1 mg/dl (8.4-10.2); Carbon Dioxide 27 mmol/L (22-30); Chloride 108 mmol/L (98-107); Estimated Creatinine Clearance > 125 ml/min; Glucose 97 mg/dl (70-99); Magnesium 2.1 mg/dl (1.6-2.3); Potassium 4.3 mmol/L (3.5-5.1); Sodium 137 mmol/L (135-145); Total Protein 6.7 g/dl (6.3-8.2); eGFR > 60.00
--- NOTE | 2025-07-23 07:31 | W.PN.CARDCBS ---
Addendum entered and electronically signed by Airam Bowling DO 07/23/25 18:31:
I saw and examined the patient.
The [employer] Claim Examiner's note was reviewed and I agree with the note.
Comment: Seen and examined. Offers no new complaints. No chest pain or shortness of breath.
GEN: No distress, awake, alert, oriented x3
HEENT: mmm
LUNGS: CTA bilaterally, no wheezes/rales
CV: Reg, S1/S2, no murmur
ABD: soft, BS+, NT/ND
EXT: No edema. Right wrist site clean dry and intact, +2 radial
Plan:
- Patient presented with symptoms of unstable angina. Ruled in for NSTEMI with peak troponin of 7.6. Status post cardiac catheterization with 100% occlusion of circumflex/OM 2 status post PCI.
-Also noted to have residual LAD disease. would plan for OP stress testing to further assess
-no CP or issues overnight
-continue asa, brilinta
-in SR on review of tele
-echo with results as above, reviewed with patient 07/22
-he was started on coreg and lisinopril this admission for HTN urgency on arrival
-LDL 76. triglycerides 505. started on high intensity statin this admission. of note he does have history of joint pain with both lipitor and zocor as OP. would consider for PCSK9 inhibitor as OP
-Will also start Vascepa 2 g 1 p.o. daily and uptitrate as toleratess
-cardiac rehab
-plan for DC today
Original Note:
Today's Communication / Plan
-
continue asa, brilinta, coreg, lisinopril, lipitor
consider transition to PCSK9 inhibitor as OP
BMP in 1 week
will need eventual stress testing to assess residual LAD disease
OP cardiac follow up arranged
ok for DC
Impression / Plan
-
PCP: Dr. Mynor Love
Card: Saw [facility] once in 2019
Impression:
[place]
NSTEMI s/p circ/OM2 PCI 07/21/25, with residual LAD disease
Hypertensive urgency
Elevated triglycerides
FH premature CAD
Echo 07/21/2025: EF 55 to 60%, trace MR, mild aortic sclerosis, normal right heart
Plan:
- Patient presented with symptoms of unstable angina. Ruled in for NSTEMI with peak troponin of 7.6. Status post cardiac catheterization with 100% occlusion of circumflex/OM 2 status post PCI.
-Also noted to have residual LAD disease. would plan for OP stress testing to further assess
-no CP or issues overnight
-continue asa, brilinta
-in SR on review of tele
-echo with results as above, reviewed with patient 07/22
-he was started on coreg and lisinopril this admission for HTN urgency on arrival
-LDL 76. triglycerides 505. started on high intensity statin this admission. of note he does have history of joint pain with both lipitor and zocor as OP. would consider for PCSK9 inhibitor as OP
-cardiac rehab
-plan for DC today
-d/w nursing. Discussed with hospitalist
PREADMIT DATA:
-Patient came to the ER today with chest pain and is being admitted with elevated troponin and concern for unstable angina and cardiology was consulted urgently in the ER. Patient says that over the weekend he was helping his daughter move from her
home and while going up and down the stairs with boxes he had a substernal chest pain. Patient did not think much of his symptoms and then he awoke at 3 AM today with heavy substernal pressure radiating to the left arm that felt similar to, but
much more intense than what he had felt yesterday. Symptoms lasted for about 2 hours and then the patient managed to doze off back to sleep and was awakened at 6 AM when the alarm went off and he had no more pain. Patient told his about his
symptoms and came to the ER. Since arrival in the ER patient says that the heavy chest pressure has improved, but there is an ongoing aching substernal. Patient recalls being evaluated by [facility] in 2019 with symptoms that were attributed to GERD. He
says he had a stress test but it has been many years since then. Patient denies history of HTN, but initial BP today was 160/109 and BP as high as 167/125. Patient does not take any medications on a daily basis as an outpatient.
Progress Note - Personnel Analyst
Subjective
Date of Service: July 23, 2025
no issues overnight
Objective
Labs:
07/23/25 02:15
07/23/25 02:15
Labs
Hgb 14.7 g/dL (13.0-18.0) 07/23/25 02:15
Hct 40.8 % (39.0-52.0) 07/23/25 02:15
Plt Count 158 10^3/uL (130-400) 07/23/25 02:15
APTT Cancelled 07/21/25 16:30
Sodium 137 mmol/L (135-145) 07/23/25 02:15
Potassium 4.3 mmol/L (3.5-5.1) 07/23/25 02:15
BUN 15 mg/dl (9-20) 07/23/25 02:15
Creatinine 0.8 mg/dL (0.7-1.3) 07/23/25 02:15
Glucose 97 mg/dl (70-99) 07/23/25 02:15
Troponins
07/21/25 07/21/25 07/21/25
09:07 16:43 21:04
Troponin I 0.188 H* 7.620 H* D 5.820 H*
07/22/25
03:50
Troponin I 3.780 H* D
Vital Signs and I&O:
Vital Signs
Temp Pulse Resp BP Pulse Ox
97.7 F 68 18 131/84 98
07/23/25 02:13 07/23/25 07:00 07/23/25 02:13 07/23/25 02:11 07/23/25 02:13
Vital Signs
Temp Pulse Resp BP Pulse Ox
97.7 F 68 18 131/84 98
07/23/25 02:13 07/23/25 07:00 07/23/25 02:13 07/23/25 02:11 07/23/25 02:13
Intake & Output
07/20/25 07/21/25 07/22/25 07/23/25
07:59 07:59 07:59 07:59
Intake Total 780 / 780 960 / 960
Balance 780 / 780 960 / 960
Physical Exam
Physical Exam
GEN: No distress, awake, alert, oriented x3
HEENT: supple, anicteric, mmm, EOMI
LUNGS: CTA bilaterally, no wheezes/rales
CV: Reg, S1/S2, no murmur
ABD: soft, BS+, NT/ND
EXT: No cyanosis, clubbing, edema
NEURO: Gross non-focal
SKIN: Warm, pink, dry. No rash. Right wrist site clean dry and intact, nontender to palpation.
[2025-07-23 07:59] VITALS: BP 119/106
[2025-07-23 08:00] VITALS: BP 136/99
[2025-07-23 08:02] VITALS: BP 127/102
--- NOTE | 2025-07-23 09:23 | CM ---
Reviewed chart. Met with Mr. Mason is to review discharge plans. He states he is feeling well and maybe able to go home soon. He states his spouse picked up his Ticagrelor already. Prior to admission he resides wit his spouse in a two story home
with six steps to enter. He has a full flight of steps to get to bedroom. He has a full bathroom on each level. He states prior to admission he was independent with ambulation and adls. He does not have any DME in the home. He has a prescription
plan with [facility] and uses [facility] Medical work-up in progress. The discharge plan is to return home with his spouse when medically stable.
Initialized on 07/21/25 16:12 - END OF NOTE
[2025-07-23] MEDS: COREG 3.125 MG PO (10:03)
[2025-07-23] MEDS: LOW STRENGTH ASPIRIN 81 MG PO (10:03)
[2025-07-23] MEDS: ZESTRIL 5 MG PO (10:03)
[2025-07-23] MEDS: PROTONIX 40 MG PO (10:03)
[2025-07-23] MEDS: HEPARIN SC (10:03)
[2025-07-23] MEDS: BRILINTA 90 MG PO (10:04)
[2025-07-23 11:09] VITALS: BP 124/93
--- NOTE | 2025-07-23 12:18 | W.PN.HOSP.TC ---
Addendum entered and electronically signed by Vj Flood MD 07/24/25 17:29:
[id number]
Original Note:
Today's Communication/Plan
-
DAPT
coreg
lisinopril
lipitor
Possible PCSK9 inhibitor as OP
CBC and BMP in 1 week
eventual stress testing to assess residual LAD disease
F/u PCP within 1 week
Assessment / Plan
Assessment / Plan
Physical Exam
General: Well Developed and Well Nourished
HEENT: NormoCephalic
Respiratory: Clear
Cardiac: S1/S2, Regular Rhythm and Tachycardia
GI: Non Tender
Musculoskeletal: No Clubbing
Skin: Warm
Neuro: Awake, Alert, Oriented and AO x 3
Hematologic/Lymphatic: No Lymphadenopathy
Psych: Calm
59-year-old coming in for unstable angina, suspected ACS.
PLAN:
#ACS
#NSTEMI
-Troponin peaked at 7.62
-Successful stenting of 100% occluded mid circumflex/OM2
-Residual coronary disease involving the mid LAD with tandem 50 and 65% stenoses.
�continue asa, brilinta, coreg, lisinopril, lipitor
-consider transition to PCSK9 inhibitor as OP
-BMP in 1 week
� Echocardiogram: no wall motion abnormalities; ejection fraction 55-60%.
-outpatient stress testing and follow-up to determine best strategy for moderate tandem LAD stenoses.
#Hypertension
� Initiated on beta-blockade, ACEI
#GERD
� Famotidine
Prophylaxis
� hsq
More than 30 minutes spent in discharge including
Final examination of the patient
Summarizing hospital stay
Instructions for continuing care to all relevant caregivers
Preparation of discharge records, prescriptions, and referral forms
Total time spent (in minutes): 36
Anticipated Discharge: Today
Subjective/Interval History
-
Date of Service: July 23, 2025
No acute events overnight
Objective Data
-
Labs:
Laboratory Results
07/23/25
02:15
WBC 7.1
Hgb 14.7
Hct 40.8
Plt Count 158
Sodium 137
Potassium 4.3
Chloride 108 H
Carbon Dioxide 27
BUN 15
Creatinine 0.8
Glucose 97
Calcium 9.1
Total Bilirubin 1.3
AST 37
ALT 31
Alkaline Phosphatase 78
Vital Signs:
Vital Signs
Temp Pulse Resp BP Pulse Ox
97.7 F 69 13 124/93 97
07/23/25 11:08 07/23/25 12:00 07/23/25 11:08 07/23/25 11:09 07/23/25 11:09
I&O
07/22/25 07/23/25 07/24/25
06:59 06:59 06:59
Intake Total 780 / 780 960 / 960 960 / 960
Balance 780 / 780 960 / 960 960 / 960
Review of Systems
-
History Source: Patient
All other systems: Not reviewed unless documented
Data Reviewed
-
Diagnostic Radiology: Report Reviewed by me
Labs: Labs Reviewed by me
--- NOTE | 2025-07-23 12:22 | W.DS.TRANS ---
DC Summary - Monogram Operator
-
Discharge Instructions:
Discharge Diagnosis/Procedures NSTEMI, s/p angioplasty and stent to Left
Circumflex artery
Diet Low Cholesterol,Low Fat
Activity No strenuous activity
Additional Activity no heavy lifting greater than 10 pounds for 1
week!
Driving Restrictions No driving for 24 hours
Blood Work cbc and BMP in 1 week
Other Services Cardiac Rehab
Instructions:
Stand-Alone Forms: DC Instructions- Cath/EP Lab
Changes to Home Medications: Yes
Discharge Medications:
DC Medications w/original date entered in [facility]
famotidine 20 mg tablet (Pepcid) 20 mg PO DAILYPRN PRN GERD 07/21/25
ticagrelor 90 mg tablet (Brilinta) 90 mg PO BID #60 tabs 07/21/25
aspirin 81 mg chewable tablet 81 mg PO DAILY 30 days #30 tabs 07/23/25
atorvastatin 80 mg tablet 80 mg PO QPM 30 days #30 tabs 07/23/25
carvedilol 3.125 mg tablet 3.125 mg PO BID 30 days #60 tabs 07/23/25
icosapent ethyl 1 gram capsule (Vascepa) 2 g (2 x 1 gram) PO DAILY #60 caps 07/23/25
lisinopril 5 mg tablet 5 mg PO DAILY 30 days #30 tabs 07/23/25
Home Medication Changes
ticagrelor 90 mg tablet (Brilinta) 90 mg PO BID #60 tabs 07/21/25
aspirin 81 mg chewable tablet 81 mg PO DAILY 30 days #30 tabs 07/23/25
atorvastatin 80 mg tablet 80 mg PO QPM 30 days #30 tabs 07/23/25
carvedilol 3.125 mg tablet 3.125 mg PO BID 30 days #60 tabs 07/23/25
icosapent ethyl 1 gram capsule (Vascepa) 2 g (2 x 1 gram) PO DAILY #60 caps 07/23/25
lisinopril 5 mg tablet 5 mg PO DAILY 30 days #30 tabs 07/23/25
Pending Results: No
--- NOTE | 2025-07-23 13:59 | PTCARENOTE ---
Pt's IV line & monitoring manager D/C'd. Discussed D/C instructions & med list w/pt & spouse. Pt escorted out via WC by staff w/ driving pt home. 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
== END 2025-07-23 14:01 | disposition home or self-care (01) | DRG 322 ==
LOC: IVU 14:14
PROVIDERS: Internal Medicine Interventional Cardiology; Nurse Practitioner; Physician Assistant; ADMITTING PHYSICIAN Internal Medicine; CONSULT PHYSICIAN Internal Medicine Cardiovascular Disease; EMERGENCY PHYSICIAN Emergency Medicine; FAMILY PHYSICIAN Family Medicine
PROC: 4A023N7 Measurement of Cardiac Sampling and Pressure, Left Heart, Percutaneous Approach (ICD-10-PCS; 2025-07-21)
PROC: 027034Z Dilation of Coronary Artery, One Artery with Drug-eluting Intraluminal Device, Percutaneous Approach (ICD-10-PCS; 2025-07-21)
PROC: B2111ZZ Fluoroscopy of Multiple Coronary Arteries using Low Osmolar Contrast (ICD-10-PCS; 2025-07-21)
PROC: B2151ZZ Fluoroscopy of Left Heart using Low Osmolar Contrast (ICD-10-PCS; 2025-07-21)
DX: I21.4 Non-ST elevation (NSTEMI) myocardial infarction (principal); I16.1 Hypertensive emergency; K21.9 Gastro-esophageal reflux disease without esophagitis; I25.10 Atherosclerotic heart disease of native coronary artery without angina pectoris; Z82.49 Family history of ischemic heart disease and other diseases of the circulatory system; Z79.82 Long term (current) use of aspirin; I10 Essential (primary) hypertension
CPT/HCPCS: 71046; 80053; 80061; 83036; 83721; 83735; 83880; 84484; 85027; 85347; 85730; 93005; 93306; 93458; 96374; 96375; 96376; 99152; 99153; 99291; C1725; C1769; C1874; C1894; C9600; Q9950; Q9967

== ENCOUNTER → 2025-09-10 07:47 | Outpatient (REF) | payer OTHER, SELFPAY | LOC: HWRCS 07:47 | PROVIDERS: ATTENDING PHYSICIAN Nurse Practitioner; FAMILY PHYSICIAN Family Medicine | DX: I21.4 Non-ST elevation (NSTEMI) myocardial infarction (principal) | CPT/HCPCS: 78452; 93017; A9500 ==